=== PATIENT | male | born 1990 | race Caucasian/White ===

== ENCOUNTER 2017-06-02 14:27 | Observation (INO) | payer OTHER ==
[~2017-06-02] VITALS: Ht 165.1 cm; Wt 58.1 kg
[2017-06-02 15:08] LABS: ABSOLUTE BASOPHIL COUNT 0 /CUMM (0.0-0.2); ABSOLUTE EOSINOPHIL COUNT 0.1 /CUMM (0.0-0.7); ABSOLUTE LYMPH COUNT 1.9 /CUMM (1.2-3.4); ABSOLUTE MONOCYTE COUNT 0.6 /CUMM (0.10-0.60); BASOPHIL % 0.3 % (0.0-2.0); EOSINOPHIL % 1.6 % (0-5); GRANULOCYTE % 52.8 % (42.2-75.2); HEMATOCRIT 44.7 % (42-52); MEAN CORPUSCULAR HGB 29.5 PG (27.0-31.0); MEAN CORPUSCULAR HGB CONC 32.7 G/DL (33.0-37.0); MEAN CORPUSCULAR VOLUME 90.2 FL (80.0-94.0); MEAN PLATELET VOLUME 8.5 FL (7.4-10.4); PLATELET COUNT 307 /CUMM (130-400); RBC DISTRIBUTION WIDTH 13.6 % (11.5-14.5); RED BLOOD CELL CT 4.95 /CUMM (4.70-6.10); WHITE BLOOD CELL COUNT 5.6 /CUMM (4.8-10.8)
[2017-06-02 15:16] LABS: PT 11.2 SEC (9.4-12.5); PTT 31 SEC (25-37)
--- NOTE | 2017-06-02 15:17 | ED GI/GU/ABDOMINAL COMPLAINT ---
History of Present Illness General Chief Complaint: General Adult Stated Complaint: BIBA FOR RECTAL BLEED Source: [facility] Exam Limitations: clinical condition Vital Signs & Intake/Output Vital Signs & Intake/Output Vital Signs Date Time Temp Pulse Resp B/P B/P Pulse O2 O2 Flow FiO2 Mean Ox Delivery Rate 06/02 1610 97.1 86 20 103/74 97 Room Air 06/02 1607 86 103/74 06/02 1442 96 Room Air 06/02 1434 98.7 86 20 120/57 96 Room Air Allergies Coded Allergies: No Known Allergies (06/02/17) Triage Note: 26 Y/O MALE TO ED ROOM 17 VIA EMS STRET[facility] WITH C/O LOWER GI BLEED. DIAPER AT DAYCARE HAD STOOL WITH BLOOD AND CLOTS. Triage Nurses Notes Reviewed? 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 Patient's caregiver reports that patient was hospitalized at [facility] 2 weeks ago for a small bowel obstruction. He was discharged after several days without a surgical procedure. The small bowel obstruction resolved on its own. Patient had been constipated for several days after this. He was treated with milk of magnesia yesterday he had a large hard bowel movement without any blood. Today he had a bowel movement that was described by his caregiver as "appeared like a woman's menstrual cycle". There was blood and dark red blood clots. Patient does not take blood thinners. His mental status is at baseline. He's been eating and drinking normally. No abdominal pain nausea or vomiting. He has not had a colonoscopy in the past. There is been no additional bleeding other than the single episode. (Finn Byrd) Reconcile Medications Acetaminophen 325 MG TABLET 2 TAB PO Q4H PRN PAIN/FEVER>100.2 (Reported) Bacitracin 500 UNIT/GRAM OINT...G. 1 MARV TOP BID PRN ABRASIONS/SCRAPES/MINOR VASQUEZ (Reported) apply to affected area(s) Chlorhexidine Gluconate (Periogard) (Unknown Strength) MOUTHWASH (Unknown Dose ) PO BID ORAL HEALTH (Reported) Cholecalciferol (Vitamin D3) (Vitamin D) 1,000 UNIT TABLET 1 TAB PO DAILY SUPPLEMENT (Reported) Guaifenesin/Dextromethorphan (Zyncof 20-400 MG/5 Ml Liquid) 400 MG-20 MG/5 ML LIQUID 5 ML PO Q4H PRN COUGH/CONGESTION (Reported) Ketoconazole (Nizoral) 2 % SHAMPOO 1 MARV TOP Monday SCALP ( Reported) Magnesium Hydroxide (Milk Of Magnesia) 400 MG/5 ML ORAL.SUSP 15 ML PO QPM PRN CONSTIPATION (Reported) Mineral Oil/Hydrophil Petrolat (Aquaphor Ointment) 396 GM OINT...G. 1 MARV TOP AD PRN SKIN (Reported) Omeprazole 20 MG TABLET.DR 1 TAB PO DAILY gi bleed Petrolatum,White (Balmex) 51.1 % OINT...G. 1 MARV TOP AD PRN PERINEAL AREA/RED, CHAFFED SKI (Reported) Polyethylene Glycol 3350 (Miralax) 17 GRAM POWD.PACK 1 PAC PO DAILY GI ( Reported) dissolve in water Pyrithione Zinc (Selsun Blue) (Unknown Strength) SHAMPOO (Unknown Dose) TOP AD PRN DANDRUFF (Reported) (Merlene FELIPE,Colt Krishnamurthy) Past History Travel History Traveled to [place] past 21 day No Medical History Any Pertinent Medical History? 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 No (Finn Byrd) Review of Systems Review of Systems Constitutional: Reports: no symptoms. EENTM: Reports: no symptoms. Respiratory: Reports: no symptoms. Cardiovascular: Reports: no symptoms. GI: Reports: bloody stool. Genitourinary: Reports: no symptoms. Musculoskeletal: Reports: no symptoms. Skin: Reports: no symptoms. Neurological/Psychological: Reports: no symptoms. Hematologic/Endocrine: Reports: no symptoms. Immunologic/Allergic: Reports: no symptoms. All Other Systems: Reviewed and Negative (Finn Byrd) Physical Exam Physical Exam General Appearance: well developed/nourished, no apparent distress, alert, awake , comfortable Head: atraumatic, normal appearance Eyes: Bilateral: normal appearance, PERRL, EOMI. Ears, Nose, Throat, Mouth: hearing grossly normal, moist mucous membrane, Tympanic normal Neck: normal inspection, supple, full range of motion Respiratory: normal breath sounds, chest non-tender, no respiratory distress, lungs clear Cardiovascular: regular rate/rhythm, normal peripheral pulses Peripheral Pulses: 2+ radial (R), 2+ radial (L) Gastrointestinal: normal bowel sounds, soft, non-tender, no organomegaly Rectal: normal inspection, normal rectal tone, heme positive stool Back: normal inspection, normal range of motion Extremities: normal range of motion Neurologic/Psych: no motor/sensory deficits, awake, alert Skin: intact, normal color, warm/dry Core Measures ACS in differential dx? No Sepsis Present: No Sepsis Focused Exam Completed? No (Finn Byrd) Progress Differential Diagnosis: appendicitis, biliary colic, bowel obstruction, diverticulitis, gastritis, hemorrhoids, Jeana-Barbara tear, peptic ulcer, PUD/ GERD, SBO, avm, ISCHEMIC COLITIS Plan of Care: Orders Procedure Date/time Status Patient Data 06/[address] in observation 06/02 1625 Active MISTAKE 06/02 1442 Active PARTIAL THROMBOPLASTIN TIME 06/02 1442 Complete PROTHROMBIN TIME 06/02 1442 Complete COMPREHENSIVE METABOLIC PANEL 06/02 1442 Complete CBC WITHOUT DIFFERENTIAL 06/02 1442 Complete Intake & Output 06/02 1433 Active Laboratory Tests 06/02/17 1500: Anion Gap 14, Estimated GFR > 60, BUN/Creatinine Ratio 16.3, Glucose 88, Calcium 9.8, Total Bilirubin 0.4, AST 25, ALT 69, Alkaline Phosphatase 56, Total Protein 6.8, Albumin 4.3, Globulin 2.5, Albumin/Globulin Ratio 1.7, PT 11.2, INR 1.07, APTT 31, CBC w Diff NO MAN DIFF REQ, RBC 4.95, MCV 90.2, MCH 29.5, MCHC 32.7 L, RDW 13.6, MPV 8.5, Gran % 52.8, Lymphocytes % 34.4, Monocytes % 10.9 H, Eosinophils % 1.6, Basophils % 0.3, Absolute Granulocytes 3.0, Absolute Lymphocytes 1.9, Absolute Monocytes 0.6, Absolute Eosinophils 0.1, Absolute Basophils 0 Patient seen and evaluated. He has what was described as large amount of dark blood and blood clots in his stool. This is concerning for a larger GI bleed. He also had a possible small bowel obstruction 2 weeks ago and had a large hard bowel movement that proceeded the blood. Patient's mental status is at baseline he is hemodynamically stable. Rectal exam was positive for occult blood. He is clinically well appearing. Bloodwork is within normal limits. CT scan does not show any evidence of colitis. Spoke with Dr. Abreu from gastroenterology. She recommends admitting the patient for observation due to the concern for significant GI bleeding. Patient will be kept for serial H&H's, colonoscopy, monitoring of vital signs and GI consult, case discussed with Dr. Blunt he agrees. Diagnostic Imaging: Viewed by Me: CT Scan. Discussed w/RAD: CT Scan. Radiology Impression: PATIENT: JONI GREENBERG PRESENT AGE: 26 PATIENT ACCOUNT NO: [id number] : 90 LOCATION: [facility] ORDERING PHYSICIAN: Finn JACOBSON SERVICE DATE: 06/02/17 EXAM TYPE: CAT - CT ABD & PELVIS W IV CONTRAST EXAMINATION: CT ABDOMEN AND PELVIS WITH CONTRAST CLINICAL INFORMATION: Abdominal pain. COMPARISON: None. TECHNIQUE: Contiguous axial thin section helical images of the abdomen and pelvis were performed following the administration of 95 mL of intravenous Optiray 320. The data set was reformatted in the coronal and sagittal planes and reviewed on an independent workstation. DLP: 348 mGy-cm. FINDINGS: There is mild dependent bibasilar atelectasis. The visualized lung bases are otherwise clear. The visualized portions of the heart are unremarkable. The liver is of normal size and attenuation without focal lesions nor intrahepatic biliary ductal dilation. A normal gallbladder is identified. There is no wall thickening or discernible pericholecystic fluid. The spleen, pancreas, adrenal glands are unremarkable. Both kidneys are of normal size and attenuation without hydronephrosis or nephrolithiasis. Following the administration of IV contrast, prompt symmetric nephrograms are displayed. There is no abdominal free fluid. There is neither mesenteric nor retroperitoneal lymphadenopathy. Normal unopacified loops of small and large bowel are identified. A normal appendix is identified. There is no pelvic free fluid. The urinary bladder is unremarkable. There is neither pelvic nor inguinal lymphadenopathy. Bone windows: Neither sclerotic nor lytic bone lesions are identified. IMPRESSION: No evidence for acute abdominal or pelvic inflammatory or infectious processes. DICTATED BY: Arie Negron MD DATE/TIME DICTATED:06/02 INSPECTOR METAL FABRICATING:REJI DATE/TIME TRANSCRIBED:06/02/171754 CONFIDENTIAL, DO NOT COPY WITHOUT APPROPRIATE AUTHORIZATION. Initial ED EKG: none (Finn Byrd) Departure Departure Disposition: STILL A PATIENT Condition: Stable Clinical Impression Primary Impression: GI bleed Qualifiers: GI bleed type/associated pathology: anorectal hemorrhage Qualified Code: K62.5 - Hemorrhage of anus and rectum Referrals: Davey Hidalgo MD (PCP/Family) Departure Forms: Customer Survey General Discharge Information Observation Note Spoke With: Davey Hidalgo MD Physician Advisor Notified: ROSELYN FELIPE,ANNELISE Vogt Place Patient In: Non-ED OBS Care Area Rationale for Observation: My rational for observation is as follows [patient had a large amount of bleeding from his rectum that is described as "a woman's menstrual cycle" by his caretakers. There were large numbers of clots there. This is concerning for a significant GI bleed. Dr. Abreu from gastroenterology recommends admitting for observation for a GI consult, colonoscopy, serial labs, monitoring of vital signs]. (Finn Byrd) Departure Prescriptions: Current Visit Scripts Omeprazole 1 TAB PO DAILY #30 TAB PA/REACHER Co-Sign Statement Statement: ED Attending supervision documentation- [X] I saw and evaluated the patient. I have also reviewed all the pertinent lab results and diagnostic results. I agree with the findings and the plan of care as documented in the PA's/REACHER's documentation. Patient presents for possibility of a GI bleed. Physical examination reveals a comfortable appearing patient with nondistended nontender abdomen. [] I have reviewed the ED Record and agree with the PA's/REACHER's documentation. [] Additions or exceptions (if any) to the PAs/REACHER's note and plan are summarized below: [] (Merlene FELIPE,Colt Krishnamurthy)
--- NOTE | 2017-06-02 18:03 | CT SCAN REPORT ---
EXAMINATION: CT ABDOMEN AND PELVIS WITH CONTRAST CLINICAL INFORMATION: Abdominal pain. COMPARISON: None. TECHNIQUE: Contiguous axial thin section helical images of the abdomen and pelvis were performed following the administration of 95 mL of intravenous Optiray 320. The data set was reformatted in the coronal and sagittal planes and reviewed on an independent workstation. DLP: 348 mGy-cm. FINDINGS: There is mild dependent bibasilar atelectasis. The visualized lung bases are otherwise clear. The visualized portions of the heart are unremarkable. The liver is of normal size and attenuation without focal lesions nor intrahepatic biliary ductal dilation. A normal gallbladder is identified. There is no wall thickening or discernible pericholecystic fluid. The spleen, pancreas, adrenal glands are unremarkable. Both kidneys are of normal size and attenuation without hydronephrosis or nephrolithiasis. Following the administration of IV contrast, prompt symmetric nephrograms are displayed. There is no abdominal free fluid. There is neither mesenteric nor retroperitoneal lymphadenopathy. Normal unopacified loops of small and large bowel are identified. A normal appendix is identified. There is no pelvic free fluid. The urinary bladder is unremarkable. There is neither pelvic nor inguinal lymphadenopathy. Bone windows: Neither sclerotic nor lytic bone lesions are identified. IMPRESSION: No evidence for acute abdominal or pelvic inflammatory or infectious processes.
[2017-06-02] MEDS ORDERED: NIZORAL120 ML TOP (18:24)
[2017-06-02] MEDS ORDERED: AQUAPHOR OINTM396 GM TOP (18:25)
[2017-06-02] MEDS ORDERED: SELSUN BLUE TOP (18:25)
--- NOTE | 2017-06-02 18:26 | History & Physical ---
Jonh FELIPE,[facility] 06/02/17 1825: General Information and HPI MD Statement: I have seen and personally examined JONI GREENBERG and documented this H&P. The patient is a 26 year old M who presented with a patient stated chief complaint of [GI bleed]. Source of Information: campground caretaker Exam Limitations: not alert/orientated, clinical condition History of Present Illness: 26-year-old male with a past medical history of Angelman syndrome and bowel obstruction and not verbal at baseline who presented with GI bleed. The patient 's functional tester typewriters states that the patient had a large stool this morning. The patient then went to the bathroom again this afternoon. The previous functional tester typewriters stated that there was a lot of blood clots mixed with stool in addition to bright red blood. Prior to having it bowel movement this morning, the patient's last was 2 days prior. The functional tester typewriters states that the patient never had episodes like this before. The functional tester typewriters states that the patient has not had a nausea vomiting. Allergies/Medications Allergies: Coded Allergies: No Known Allergies (06/02/17) Home Med list Acetaminophen 325 MG TABLET 2 TAB PO Q4H PRN PAIN/FEVER>100.2 (Reported) Bacitracin 500 UNIT/GRAM OINT...G. 1 MARV TOP BID PRN ABRASIONS/SCRAPES/MINOR VASQUEZ (Reported) apply to affected area(s) Chlorhexidine Gluconate (Periogard) (Unknown Strength) MOUTHWASH (Unknown Dose ) PO BID ORAL HEALTH (Reported) Cholecalciferol (Vitamin D3) (Vitamin D) 1,000 UNIT TABLET 1 TAB PO DAILY SUPPLEMENT (Reported) Guaifenesin/Dextromethorphan (Zyncof 20-400 MG/5 Ml Liquid) 400 MG-20 MG/5 ML LIQUID 5 ML PO Q4H PRN COUGH/CONGESTION (Reported) Ketoconazole (Nizoral) 2 % SHAMPOO 1 MARV TOP Monday SCALP ( Reported) Magnesium Hydroxide (Milk Of Magnesia) 400 MG/5 ML ORAL.SUSP 15 ML PO QPM PRN CONSTIPATION (Reported) Mineral Oil/Hydrophil Petrolat (Aquaphor Ointment) 396 GM OINT...G. 1 MARV TOP AD PRN SKIN (Reported) Petrolatum,White (Balmex) 51.1 % OINT...G. 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 Cardiovascular: Reports: no symptoms. Respiratory: Reports: no symptoms. GI: Reports: bloody stool. Genitourinary: Reports: no symptoms. Musculoskeletal: Reports: no symptoms. Skin: Reports: no symptoms. Exam & Diagnostic Data Last 24 Hrs of Vital Signs/I&O Vital Signs Date Time Temp Pulse Resp B/P B/P Pulse O2 O2 Flow FiO2 Mean Ox Delivery Rate 06/02 2300 58 18 112/64 100 Room Air 06/02 1904 97.6 75 18 103/75 06/02 1610 97.1 86 20 103/74 97 Room Air 06/02 1607 86 103/74 06/02 1442 96 Room Air 06/02 1434 98.7 86 20 120/57 96 Room Air Intake & Output 06/03 0800 06/03 0000 06/02 1600 Intake Total 120 0 Output Total Balance 120 0 Intake, Oral 120 0 Patient 128 lb Weight Weight Measurement Method Physical Exam General Appearance the patient's eyes are closed, and the patient does not communicate with staff Skin finger capillary refill less than 2 seconds Cardiovascular Regular Rate, Normal S1, Normal S2 Lungs Clear to Auscultation, Normal Air Movement Abdomen Normal Bowel Sounds, Soft, No Tenderness Vascular 2+ radial pulses Last 24 Hrs of Labs/Chandra: Laboratory Tests 06/02/17 1500: Anion Gap 14, Estimated GFR > 60, BUN/Creatinine Ratio 16.3, Glucose 88, Calcium 9.8, Total Bilirubin 0.4, AST 25, ALT 69, Alkaline Phosphatase 56, Total Protein 6.8, Albumin 4.3, Globulin 2.5, Albumin/Globulin Ratio 1.7, PT 11.2, INR 1.07, APTT 31, CBC w Diff NO MAN DIFF REQ, RBC 4.95, MCV 90.2, MCH 29.5, MCHC 32.7 L, RDW 13.6, MPV 8.5, Gran % 52.8, Lymphocytes % 34.4, Monocytes % 10.9 H, Eosinophils % 1.6, Basophils % 0.3, Absolute Granulocytes 3.0, Absolute Lymphocytes 1.9, Absolute Monocytes 0.6, Absolute Eosinophils 0.1, Absolute Basophils 0 Assessment/Plan Assessment: A: 26-year-old male with a past medical history of Angelman syndrome and bowel obstruction and not verbal at baseline who presented with GI bleed. P: #GI bleed H/H 14.6/44.7 INR 1.07, PTT 31, PT 11.2 -Monitor vitals closely every shift, Type and screen, 2 large IV bore needles gentle hydration -monitoring of hemoglobin and hematocrit -IV Protonix -reccheck orthostats -Guaiac stools -Patient was seen by Dr. Brown who recommended that the patient have follow- up for outpatient colonoscopy #Chronic constipation -Vitamin D, MiraLAX, milk of magnesia #Angelman syndrome -Continuous observation monitor #full code DVT prophylaxis subcutaneous Lovenox As Ranked By This Provider Problem List: 1. GI bleed Qualifiers GI bleed type/associated pathology: anorectal hemorrhage Qualified Code: K62.5 - Hemorrhage of anus and rectum Core Measures/Misc (01/22) Acute Coronary Syndrome ACS Diagnosis: No Congestive Heart Failure Congestive Heart Failure Diagnosis No Cerebrovascular Accident CVA/TIA Diagnosis: No VTE (View Protocol) VTE Risk Factors Acute Medical Illness No Mechanical VTE Prophylaxis d/t Other No VTE Pharm Prophylaxis d/t NA PharmProphylax ordered Sepsis (View protocol) Sepsis Present: No Jaime Kamara 06/03/17 0045: Past History Surgical History Surgical History: unobtainable Resident Review Statement Resident Statement: examined this patient, discussed with jewelry internship, agreed with jewelry internship, discussed with family, reviewed EMR data (avail), discussed with nursing , discussed with case mgmt, reviewed images, amended to note Other Findings: This is a 26-year-old male with past medical history significant for mental retardation, Angelman syndrome, bowel obstruction, constipation presented to the [facility] from his long-term for evaluation of bright red blood per rectum. She was admitted to [facility] 2 weeks ago for nausea, vomiting, found to have small bowel obstruction, hospitalized for 5 days, managed conservatively. The patient was brought to the ED from the long-term where he resides. They report that he had a diaper full of darkish red blood with clots. Per their report he had a large hard stool prior to this. He had not complained of any nausea vomiting or abdominal pain. Patient is nonverbal. Review of systems unobtainable. ----- Vitals at the time of presentation afebrile, heart rate 80, respiratory rate 20, blood pressure 120/57, saturating at 96 on room air. Physical exam [id number] normal, breath sounds good, abdomen nondistended soft, nontender. Labs at the time of admission hemoglobin 14, hematocrit 44, CBC, BMP completely normal. LFTs normal. CAT scan of abdomen and pelvis was done which was unremarkable Assessment and plan 1. Hematochezia 2. Chronic constipation 3: Mental retardation, nonverbal at baseline 1. Hematochezia Patient presented with an episode of bright red blood per rectum with clots. He has been constipated for last few days. Bright red blood was seen after having large bowel movements. He is hemodynamically stable blood pressure within normal limits. Not tachycardic. Hemoglobin 14 and hematocrit 44.7. Lower GI bleed hematochezia most likely from acute severe constipation/sterc oral ulceration. Patient denies any further episodes of hematochezia in the emergency room. * Place under observation status in the general medicine floor * Monitor vitals closely every shift * Type and screen * 2 large IV bore needles gentle hydration * Serial monitoring of hemoglobin and hematocrit * Closely monitor for any signs of GI bleed * IV Protonix * Management of constipation with bowel regimen * Appreciate Gastro recommendation * We'll check orthostats * Guaiac stools * Patient will need outpatient colonoscopy. Chronic constipation Bowel regimen was added Mental retardation Continuous observation monitor Patient is full code DVT prophylaxis subcutaneous Lovenox Regular diet
[2017-06-02] MEDS ORDERED: BALMEX100 GM TOP (18:27)
[2017-06-02] MEDS ORDERED: MILK OF MA400 MG/52 PO (18:28)
[2017-06-02] MEDS ORDERED: ACETAMINOPHEN325 M2 PO (18:29)
[2017-06-02] MEDS ORDERED: ZYNCOF 20-400120 ML PO (18:31)
[2017-06-02] MEDS ORDERED: BACITRACIN28.4 GM TOP (18:32)
[2017-06-02] MEDS ORDERED: PERIOGARD473 ML PO (18:33)
[2017-06-02] MEDS ORDERED: VITAMIN D1000 UNIT PO (18:35)
[2017-06-02] MEDS ORDERED: MIRALAX17 G1 PO (18:35)
--- NOTE | 2017-06-02 18:35 | PN- Att Addend ---
Attending Addendum Attending Brief Note 26 Year old male [facility], recently in the hospital for "intestinal obstruction" treatedmedically resolved. A little constipated , had a hard bowel movement followed by blood clots, brought to the ER in stable condition stable H /H. GI was consulted, would like to watch him follow blood work. Laboratory Tests 06/02/17 1500: Anion Gap 14, Estimated GFR > 60, BUN/Creatinine Ratio 16.3, Glucose 88, Calcium 9.8, Total Bilirubin 0.4, AST 25, ALT 69, Alkaline Phosphatase 56, Total Protein 6.8, Albumin 4.3, Globulin 2.5, Albumin/Globulin Ratio 1.7, PT 11.2, INR 1.07, APTT 31, CBC w Diff NO MAN DIFF REQ, RBC 4.95, MCV 90.2, MCH 29.5, MCHC 32.7 L, RDW 13.6, MPV 8.5, Gran % 52.8, Lymphocytes % 34.4, Monocytes % 10.9 H, Eosinophils % 1.6, Basophils % 0.3, Absolute Granulocytes 3.0, Absolute Lymphocytes 1.9, Absolute Monocytes 0.6, Absolute Eosinophils 0.1, Absolute Basophils 0 Vital Signs Date Time Temp Pulse Resp B/P B/P Pulse O2 O2 Flow FiO2 Mean Ox Delivery Rate 06/02 1610 97.1 86 20 103/74 97 Room Air 06/02 1607 86 103/74 06/02 1442 96 Room Air 06/02 1434 98.7 86 20 120/57 96 Room Air
--- NOTE | 2017-06-02 18:37 | Cons- Gastroenterology ---
General Information and HPI Consulting Request Date of Consult: 06/02/17 Requested By: MD Hidalgo Carlos Reason for Consult: 1. Hematochezia 2. Constipation Source of Information: Report from [facility] Exam Limitations: unable to give history History of Present Illness: Patient is a 26-year-old male with a history of Sheldon Montejo syndrome who was seen in [facility] proximally 2 weeks ago with a small bowel obstruction which was treated conservatively. The [facility] They report that he had a diaper full of darkish red blood with clots. Per their report he had had a large hard stool prior to this. He had not complained of any nausea vomiting or abdominal pain. Patient is nonverbal. History is obtained from KAVON Gonzalez in the ED as well as from a public service representative of the [facility]. Patient had a CT scan of the abdomen and pelvis which was unrevealing. Allergies/Medications Allergies: Coded Allergies: No Known Allergies (06/02/17) Home Med List: Acetaminophen 325 MG TABLET 2 TAB PO Q4H PRN PAIN/FEVER>100.2 (Reported) Bacitracin 500 UNIT/GRAM OINT...G. 1 MARV TOP BID PRN ABRASIONS/SCRAPES/MINOR VASQUEZ (Reported) apply to affected area(s) Chlorhexidine Gluconate (Periogard) (Unknown Strength) MOUTHWASH (Unknown Dose ) PO BID ORAL HEALTH (Reported) Cholecalciferol (Vitamin D3) (Vitamin D) 1,000 UNIT TABLET 1 TAB PO DAILY SUPPLEMENT (Reported) Guaifenesin/Dextromethorphan (Zyncof 20-400 MG/5 Ml Liquid) 400 MG-20 MG/5 ML LIQUID 5 ML PO Q4H PRN COUGH/CONGESTION (Reported) Ketoconazole (Nizoral) 2 % SHAMPOO 1 MARV TOP Monday SCALP ( Reported) Magnesium Hydroxide (Milk Of Magnesia) 400 MG/5 ML ORAL.SUSP 15 ML PO QPM PRN CONSTIPATION (Reported) Mineral Oil/Hydrophil Petrolat (Aquaphor Ointment) 396 GM OINT...G. 1 MARV TOP AD PRN SKIN (Reported) Petrolatum,White (Balmex) 51.1 % OINT...G. 1 MARV TOP AD PRN PERINEAL AREA/RED, CHAFFED SKI (Reported) Polyethylene Glycol 3350 (Miralax) 17 GRAM POWD.PACK 1 PAC PO DAILY GI ( Reported) dissolve in water Pyrithione Zinc (Selsun Blue) (Unknown Strength) SHAMPOO (Unknown Dose) TOP AD PRN DANDRUFF (Reported) Current Medications: Current Medications Sig/Anna Start time Last Medication Dose Route Stop Time Status Admin Diphenhydramine HCl 50 MG ONCE ONE 06/02 1699 DC 06/02 IV 06/02 Diphenhydramine HCl 0 .STK-MED ONE 06/02 1699 DC .ROUTE Lorazepam 1 MG ONCE ONE 06/02 1699 DC 06/02 IV 06/02 Lorazepam 0 .STK-MED ONE 06/02 1699 DC .ROUTE Past History Travel History Traveled to [place] past 21 day No Medical History 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 Gastrointestinal: S/P BOWEL OBSTRUCTION Musculoskeletal: BILATER LEG BRACES Surgical History Surgical History: none Psychosocial History ETOH Use: denies use Illicit Drug Use: denies illicit drug use Review of Systems Review of Systems: Unable to obtain review of systems Exam & Diagnostic Data Vital Signs and I&O Vital Signs Date Time Temp Pulse Resp B/P B/P Pulse O2 O2 Flow FiO2 Mean Ox Delivery Rate 06/02 1610 97.1 86 20 103/74 97 Room Air 06/02 1607 86 103/74 06/02 1442 96 Room Air 06/02 1434 98.7 86 20 120/57 96 Room Air Intake & Output 06/02 1600 06/02 0400 06/01 1600 06/01 0400 05/31 1600 05/31 0400 Intake Total 0 Output Total Balance 0 Intake, Oral 0 Physical Exam General Appearance: no apparent distress, alert, awake Head: normal appearance Eyes: Bilateral: normal appearance. Respiratory: chest non-tender, lungs clear Cardiovascular: regular rate/rhythm, Normal S1 and S2 Gastrointestinal: soft, non-tender, no organomegaly Neurologic/Psych: Unable to fully examine. Patient does not follow commands. Moves all extremities Skin: intact, normal color, warm/dry Results Pertinent Lab Results: Laboratory Tests 06/02 1500 Chemistry Sodium (137 - 145 mmol/L) 141 Potassium (3.5 - 5.1 mmol/L) 4.1 Chloride (98 - 107 mmol/L) 97 L Carbon Dioxide (22 - 30 mmol/L) 30 Anion Gap (5 - 16) 14 BUN (9 - 20 mg/dL) 13 Creatinine (0.7 - 1.2 mg/dL) 0.8 Estimated GFR (>60 ml/min) > 60 BUN/Creatinine Ratio (7 - 25 %) 16.3 Glucose (65 - 99 mg/dL) 88 Calcium (8.4 - 10.2 mg/dL) 9.8 Total Bilirubin (0.2 - 1.3 mg/dL) 0.4 AST (17 - 59 U/L) 25 ALT (21 - 72 U/L) 69 Alkaline Phosphatase (< 127 U/L) 56 Total Protein (6.3 - 8.2 g/dL) 6.8 Albumin (3.5 - 5.0 g/dL) 4.3 Globulin (1.9 - 4.2 gm/dL) 2.5 Albumin/Globulin Ratio (1.1 - 2.2 %) 1.7 Coagulation PT (9.4 - 12.5 SEC) 11.2 INR (0.90 - 1.17) 1.07 APTT (25 - 37 SEC) 31 Hematology CBC w Diff NO MAN DIFF REQ WBC (4.8 - 10.8 /CUMM) 5.6 RBC (4.70 - 6.10 /CUMM) 4.95 Hgb (14.0 - 18.0 G/DL) 14.6 Hct (42 - 52 %) 44.7 MCV (80.0 - 94.0 FL) 90.2 MCH (27.0 - 31.0 PG) 29.5 MCHC (33.0 - 37.0 G/DL) 32.7 L RDW (11.5 - 14.5 %) 13.6 Plt Count (130 - 400 /CUMM) 307 MPV (7.4 - 10.4 FL) 8.5 Gran % (42.2 - 75.2 %) 52.8 Lymphocytes % (20.5 - 51.1 %) 34.4 Monocytes % (1.7 - 9.3 %) 10.9 H Eosinophils % (0 - 5 %) 1.6 Basophils % (0.0 - 2.0 %) 0.3 Absolute Granulocytes (1.4 - 6.5 /CUMM) 3.0 Absolute Lymphocytes (1.2 - 3.4 /CUMM) 1.9 Absolute Monocytes (0.10 - 0.60 /CUMM) 0.6 Absolute Eosinophils (0.0 - 0.7 /CUMM) 0.1 Absolute Basophils (0.0 - 0.2 /CUMM) 0 Imaging/Other Studies: FINDINGS: There is mild dependent bibasilar atelectasis. The visualized lung bases are otherwise clear. The visualized portions of the heart are unremarkable. The liver is of normal size and attenuation without focal lesions nor intrahepatic biliary ductal dilation. A normal gallbladder is identified. There is no wall thickening or discernible pericholecystic fluid. The spleen, pancreas, adrenal glands are unremarkable. Both kidneys are of normal size and attenuation without hydronephrosis or nephrolithiasis. Following the administration of IV contrast, prompt symmetric nephrograms are displayed. There is no abdominal free fluid. There is neither mesenteric nor retroperitoneal lymphadenopathy. Normal unopacified loops of small and large bowel are identified. A normal appendix is identified. There is no pelvic free fluid. The urinary bladder is unremarkable. There is neither pelvic nor inguinal lymphadenopathy. Bone windows: Neither sclerotic nor lytic bone lesions are identified. IMPRESSION: No evidence for acute abdominal or pelvic inflammatory or infectious processes. Assessment/Plan Assessment/Recommendations: ASSESSMENT: 1. Chronic Constipation 2. Hematochezia Patient's hematochezia is likely related to either acute nonobstructive colonic ischemia in the setting of acute severe constipation or possibly stercoral ulceration. Patient is currently comfortable and not complaining of any abdominal pain. Patient has not had any further hematochezia in the ED. Per the public service representative from the [facility] patient has been started on MiraLAX to address the issue of chronic constipation RECOMMENDATIONS: 1. Patient admitted for observation 2. Check H&H in a.m. 3. Observe for clinical signs of gastrointestinal bleeding 4. Patient have colonoscopy as an outpatient. 5. Patient to follow-up with Dr. Brown for outpatient colonoscopy. This can be scheduled as an open access colonoscopy Consult Acknowledgment - Thank you for your consult request.
[2017-06-02 23:00] VITALS: BP 112/64
[2017-06-03 07:01] VITALS: BP 134/70
--- NOTE | 2017-06-03 07:58 | PN- Housestaff ---
Jonh FELIPE,[facility] 06/03/17 0758: Subjective Follow-up For: BI bleed Subjective: No acute events overnight. Patient hunched over in bed. Of note, patient is non verbal Review of Systems Constitutional: Reports: no symptoms. Comments: Patient is non verbal Objective Last 24 Hrs of Vital Signs/I&O Vital Signs Date Time Temp Pulse Resp B/P B/P Pulse O2 O2 Flow FiO2 Mean Ox Delivery Rate 06/03 2132 98.3 64 18 100/60 100 Room Air 06/03 1440 98.0 70 18 120/70 98 Room Air 06/03 0701 97.4 98 18 134/70 98 Room Air Intake & Output 06/03 1600 06/03 0800 06/03 0000 Intake Total 620 600 120 Output Total Balance 620 600 120 Intake, IV 600 Intake, Oral 620 120 Number 0 Bowel Movements Patient 128 lb Weight Weight Measurement Method Physical Exam General Appearance: Alert, Cooperative, No Acute Distress Cardiovascular: Regular Rate, Normal S1, Normal S2 Lungs: Clear to Auscultation, Normal Air Movement, unable to fully appreciate full breath sounds. patient is non-cooperative with exam. Abdomen: Normal Bowel Sounds, Soft, No Tenderness Vascular: 2+ radial pulses Other Physical Findings: Physical exam is limited as patient is non verbal. Pt currently sitting bent over in bed. Assessment/Plan Assessment: A: 26-year-old male with a past medical history of Angelman syndrome and bowel obstruction and not verbal at baseline who presented with GI bleed. P: #GI bleed H/H 14.6/44.7 -> 14.4/43.2 INR 1.07, PTT 31, PT 11.2 -GI ok with discharging patient and outpatient follow up -monitor h/h -IV Protonix -Guaiac stools #Chronic constipation -Vitamin D, MiraLAX, milk of magnesia #Angelman syndrome -Continuous observation monitor #full code DVT prophylaxis subcutaneous Lovenox Problem List: 1. GI bleed Pain Ratin Pain Location: pt nonverbal but did not appear uncomfortable during exam today Pain Goal: Remain pain free Pain Plan: pain pathway Tomorrow's Labs & Rationales: [facility] campbell Shaikh MD,Brian 06/03/17 0318: Attending MD Review Statement Attending Statement Attending MD Statement: examined this patient, reviewed EMR data (avail), amended to note Attending Assessment/Plan: Mr. Vargas was examined. He was not interviewed as he is nonverbal. His EMR was reviewed. He has stable vital signs. His physical exam is benign. His CBC has remained stable We'll continue to follow his CBC and his clinical status. We are continuing his MiraLAX for constipation. GI input is appreciated and he will be scheduled for an outpatient procedure when she is discharged.
[2017-06-03 09:08] LABS: ABSOLUTE BASOPHIL COUNT 0 /CUMM (0.0-0.2); ABSOLUTE EOSINOPHIL COUNT 0.1 /CUMM (0.0-0.7); ABSOLUTE LYMPH COUNT 1.7 /CUMM (1.2-3.4); ABSOLUTE MONOCYTE COUNT 0.5 /CUMM (0.10-0.60); BASOPHIL % 0.6 % (0.0-2.0); EOSINOPHIL % 1.6 % (0-5); GRANULOCYTE % 56.8 % (42.2-75.2); HEMATOCRIT 43.2 % (42-52); MEAN CORPUSCULAR HGB 30.1 PG (27.0-31.0); MEAN CORPUSCULAR HGB CONC 33.2 G/DL (33.0-37.0); MEAN CORPUSCULAR VOLUME 90.5 FL (80.0-94.0); MEAN PLATELET VOLUME 9.2 FL (7.4-10.4); PLATELET COUNT 264 /CUMM (130-400); RBC DISTRIBUTION WIDTH 13.9 % (11.5-14.5); RED BLOOD CELL CT 4.77 /CUMM (4.70-6.10); WHITE BLOOD CELL COUNT 5.4 /CUMM (4.8-10.8)
[2017-06-03 14:40] VITALS: BP 120/70
--- NOTE | 2017-06-03 17:00 | PN- Gastroenterology ---
Assessment/Plan Assessment/Recommendations: ASSESSMENT: 1. Chronic Constipation 2. Hematochezia Patient's hematochezia is likely related to either acute nonobstructive colonic ischemia in the setting of acute severe constipation or possibly stercoral ulceration. Patient is currently comfortable and not complaining of any abdominal pain. Patient has not had any further hematochezia in the ED. Per the benefits representative from the custod[facility] patient has been started on MiraLAX to address the issue of chronic constipation RECOMMENDATIONS: 1. Patient tolerating diet 2. Stable for discharge today. 3. Per housestaff, has communicated with family and with custodial, patient will need followup with Raghu Brown for outpatient colonoscopy. 4. GI will sign off for now. Subjective Subjective: Patient non-verbal. Up in bed, playing with toys. Appears comfortable. Per nursing no further bleeding. Objective Vital Signs and I&Os Vital Signs Date Time Temp Pulse Resp B/P B/P Pulse O2 O2 Flow FiO2 Mean Ox Delivery Rate 06/03 1440 98.0 70 18 120/70 98 Room Air 06/03 0701 97.4 98 18 134/70 98 Room Air 06/02 2300 58 18 112/64 100 Room Air 06/02 1904 97.6 75 18 103/75 Intake & Output 06/03 1600 06/03 0400 06/02 1600 06/02 0400 06/01 1600 06/01 0400 Intake Total 1220 120 0 Output Total Balance 1220 120 0 Intake, IV 600 Intake, Oral 620 120 0 Number 0 Bowel Movements Patient 128 lb Weight Weight Measurement Method Physical Exam General Appearance: alert, awake, comfortable Respiratory: lungs clear Cardiovascular: regular rate/rhythm Abdomen: normal bowel sounds, soft, non-tender, no organomegaly Neurologic/Psychiatric: Non-verbal, Angelman's Syndrome Current Medications: Current Medications Sig/Anna Start time Last Medication Dose Route Stop Time Status Admin Acetaminophen 650 MG Q6P PRN 06/02 2000 AC PO Cholecalciferol 1,000 IU DAILY 06/03 1000 AC PO Diphenhydramine HCl 50 MG ONCE ONE 06/02 1700 DC 06/02 IV 06/02 1701 1709 Diphenhydramine HCl 0 .STK-MED ONE 06/02 1700 DC .ROUTE Enoxaparin Sodium 40 MG DAILY 06/03 1000 AC 06/03 SC 1118 Guaifenesin/Codeine 10 ML Q6P PRN 06/02 1999 AC Phosphate PO Lorazepam 1 MG ONCE ONE 06/02 170 DC 06/02 IV 06/02 1701 1709 Lorazepam 0 .STK-MED ONE 06/02 1699 DC .ROUTE Magnesium Hydroxide 15 ML QPM PRN 06/02 1999 AC PO Pantoprazole Sodium 40 MG DAILY 06/02 1956 AC 06/03 IV 1118 Polyethylene Glycol 17 GM DAILY PRN 06/02 1999 AC PO Sodium Chloride 1,000 ML ONCE ONE 06/02 1999 DC 06/02 IV 06/03 0919 2131 Results Pertinent Lab Results: Laboratory Tests 06/03 06/02 0745 1500 Chemistry Sodium (137 - 145 mmol/L) 141 141 Potassium (3.5 - 5.1 mmol/L) 4.4 4.1 Chloride (98 - 107 mmol/L) 102 97 L Carbon Dioxide (22 - 30 mmol/L) 24 30 Anion Gap (5 - 16) 16 14 BUN (9 - 20 mg/dL) 11 13 Creatinine (0.7 - 1.2 mg/dL) 0.8 0.8 Estimated GFR (>60 ml/min) > 60 > 60 BUN/Creatinine Ratio (7 - 25 %) 13.8 16.3 Glucose (65 - 99 mg/dL) 88 Calcium (8.4 - 10.2 mg/dL) 9.8 Total Bilirubin (0.2 - 1.3 mg/dL) 0.4 AST (17 - 59 U/L) 25 ALT (21 - 72 U/L) 69 Alkaline Phosphatase (< 127 U/L) 56 Total Protein (6.3 - 8.2 g/dL) 6.8 Albumin (3.5 - 5.0 g/dL) 4.3 Globulin (1.9 - 4.2 gm/dL) 2.5 Albumin/Globulin Ratio (1.1 - 2.2 %) 1.7 Coagulation PT (9.4 - 12.5 SEC) 11.2 INR (0.90 - 1.17) 1.07 APTT (25 - 37 SEC) 31 Hematology CBC w Diff NO MAN DIFF REQ NO MAN DIFF REQ WBC (4.8 - 10.8 /CUMM) 5.4 5.6 RBC (4.70 - 6.10 /CUMM) 4.77 4.95 Hgb (14.0 - 18.0 G/DL) 14.4 14.6 Hct (42 - 52 %) 43.2 44.7 MCV (80.0 - 94.0 FL) 90.5 90.2 MCH (27.0 - 31.0 PG) 30.1 29.5 MCHC (33.0 - 37.0 G/DL) 33.2 32.7 L RDW (11.5 - 14.5 %) 13.9 13.6 Plt Count (130 - 400 /CUMM) 264 307 MPV (7.4 - 10.4 FL) 9.2 8.5 Gran % (42.2 - 75.2 %) 56.8 52.8 Lymphocytes % (20.5 - 51.1 %) 31.4 34.4 Monocytes % (1.7 - 9.3 %) 9.6 H 10.9 H Eosinophils % (0 - 5 %) 1.6 1.6 Basophils % (0.0 - 2.0 %) 0.6 0.3 Absolute Granulocytes (1.4 - 6.5 /CUMM) 3.0 3.0 Absolute Lymphocytes (1.2 - 3.4 /CUMM) 1.7 1.9 Absolute Monocytes (0.10 - 0.60 /CUMM) 0.5 0.6 Absolute Eosinophils (0.0 - 0.7 /CUMM) 0.1 0.1 Absolute Basophils (0.0 - 0.2 /CUMM) 0 0
--- NOTE | 2017-06-03 17:09 | Patient Discharge Instructions ---
Discharge Instructions General Discharge Information You were seen/treated for: Bleeding per rectum Constipation Watch for these problems: Bleeding per rectum, constiaption, abdominal pain and fever. If you experinence any of these sumptoms come to ED or call to your pcp. Special Instructions: Follow up with pcp in one week. Follow up with Dr. Brown in one week and discuss for colonoscopy in future. Diet Recommended Diet: Regular Activity Activity Self Limited: Yes Acute Coronary Syndrome Inclusion Criteria At DC or during hospital stay patient has or had the following: ACS DIAGNOSIS No Discharge Core Measures Meds if any: Prescribed or Continued at Discharge Meds if any: NOT Prescribed or Continued at Discharge Congestive Heart Failure Inclusion Criteria At DC or during hospital stay patient has or had the following: CHF DIAGNOSIS No Discharge Core Measures Meds if any: Prescribed or Continued at Discharge Meds if any: NOT Prescribed or Continued at Discharge Cerebrovascular accident Inclusion Criteria At DC or during hospital stay patient has or had the following: CVA/TIA Diagnosis No Discharge Core Measures Meds if any: Prescribed or Continued at Discharge Meds if any: NOT Prescribed or Continued at Discharge Venous thromboembolism Inclusion Criteria VTE Diagnosis No VTE Type NONE VTE Confirmed by (Test) NONE Discharge Core Measures - Per Current guidelines, there needs to be overlap - treatment for the first 5 days of Warfarin therapy. - If discharged on Warfarin prior to 5 days of - overlap therapy, the patient will need to be - assessed for post discharge needs including - *Post discharge parental anticoagulation - *Warfarin and/or parental anticoagulation education - *Follow up date to check INR post discharge At least 5 days overlap therapy as Inpatient No Meds if any: Prescribed or Continued at Discharge Note: Overlap Therapy is Warfarin and Anticoagulant Meds if any: NOT Prescribed or Continued at Discharge
[2017-06-03 21:32] VITALS: BP 100/60
[2017-06-04 08:38] LABS: ABSOLUTE BASOPHIL COUNT 0 /CUMM (0.0-0.2); ABSOLUTE MONOCYTE COUNT 0.9 /CUMM (0.10-0.60); MEAN CORPUSCULAR HGB 30.2 PG (27.0-31.0); RBC DISTRIBUTION WIDTH 13.9 % (11.5-14.5); RED BLOOD CELL CT 5.33 /CUMM (4.70-6.10)
[2017-06-04 08:46] LABS: ABSOLUTE EOSINOPHIL COUNT 0 /CUMM (0.0-0.7); ABSOLUTE GRANULOCYTE CT 7.1 /CUMM (1.4-6.5); ABSOLUTE LYMPH COUNT 1.6 /CUMM (1.2-3.4); BASOPHIL % 0.4 % (0.0-2.0); EOSINOPHIL % 0.4 % (0-5); GRANULOCYTE % 73.3 % (42.2-75.2); HEMATOCRIT 47.8 % (42-52); MEAN CORPUSCULAR HGB CONC 33.7 G/DL (33.0-37.0); MEAN CORPUSCULAR VOLUME 89.6 FL (80.0-94.0); MEAN PLATELET VOLUME 9.7 FL (7.4-10.4); PLATELET COUNT 304 /CUMM (130-400)
--- NOTE | 2017-06-04 08:47 | PN- Housestaff ---
Subjective Follow-up For: lower gi bleed Subjective: he was seen and examined No acute events No more bloody bowel movements. No abdomen pain, nausea, vomiting, hematemesis, melena, hematochezia Hemoglobin remained stable Vitals stable Review of Systems Constitutional: Reports: see HPI. Objective Last 24 Hrs of Vital Signs/I&O Vital Signs Date Time Temp Pulse Resp B/P B/P Pulse O2 O2 Flow FiO2 Mean Ox Delivery Rate 06/04 0619 97.3 78 20 96 06/03 2132 98.3 64 18 100/60 100 Room Air 06/03 1440 98.0 70 18 120/70 98 Room Air Intake & Output 06/04 1600 06/04 0800 06/04 0000 Intake Total 250 350 Output Total Balance 250 350 Intake, Oral 250 350 Physical Exam General Appearance: Alert, Oriented X3, Cooperative, No Acute Distress Other Physical Findings: Cardiovascular Regular Rate, Normal S1, Normal S2 Lungs Clear to Auscultation, Normal Air Movement Abdomen Normal Bowel Sounds, Soft, No Tenderness Vascular 2+ radial pulses Current Medications: Current Medications Sig/Anna Start time Last Medication Dose Route Stop Time Status Admin Acetaminophen 650 MG Q6P PRN 06/02 1999 AC PO Cholecalciferol 1,000 IU DAILY 06/03 1000 AC 06/04 PO 0902 Enoxaparin Sodium 40 MG DAILY 06/03 1000 AC 06/03 SC 1118 Guaifenesin/Codeine 10 ML Q6P PRN 06/02 1999 AC Phosphate PO Magnesium Hydroxide 15 ML QPM PRN 06/02 1999 AC PO Pantoprazole Sodium 40 MG DAILY 06/02 195 AC 06/04 IV 0902 Polyethylene Glycol 17 GM DAILY PRN 06/02 1999 AC PO Assessment/Plan Assessment: This is a 26-year-old male with past medical history significant for mental retardation, Angelman syndrome, bowel obstruction, constipation presented to the [facility] from his retirement for evaluation of bright red blood per rectum. he was admitted to [facility] 2 weeks ago for nausea, vomiting, found to have small bowel obstruction, hospitalized for 5 days, managed conservatively. ----- Vitals at the time of presentation afebrile, heart rate 80, respiratory rate 20, blood pressure 120/57, saturating at 96 on room air. Physical exam [id number] normal, breath sounds good, abdomen nondistended soft, nontender. Labs at the time of admission hemoglobin 14, hematocrit 44, CBC, BMP completely normal. LFTs normal. CAT scan of abdomen and pelvis was done which was unremarkable Assessment and plan 1. Hematochezia 2. Chronic constipation 3: Mental retardation, nonverbal at baseline 1. Hematochezia Patient presented with an episode of bright red blood per rectum with clots. He has been constipated for last few days. Bright red blood was seen after having large bowel movements. He is hemodynamically stable blood pressure within normal limits. Not tachycardic. Hemoglobin 14 and hematocrit 44.7. Lower GI bleed hematochezia most likely from acute severe constipation/sterc oral ulceration. Patient denies any further episodes of hematochezia in the emergency room. * Placed under observation status in the general medicine floor * Monitor vitals closely every shift * Type and screen done * 2 large IV bore needles * gentle hydration * Serial monitoring of hemoglobin and hematocrit- stable * Closely monitored for any signs of GI bleed * IV Protonix * Management of constipation with bowel regimen * Appreciate Gastro recommendation * orthostats- neg * Guaiac stools * Patient will need outpatient colonoscopy. Chronic constipation Bowel regimen was added Mental retardation Continuous observation monitor Patient is full code DVT prophylaxis subcutaneous Lovenox Regular diet Problem List: 1. GI bleed Pain Ratin Pain Location: n/a Pain Goal: Remain pain free Pain Plan: tylinol Tomorrow's Labs & Rationales: n/a
[2017-06-04 08:50] LABS: WHITE BLOOD CELL COUNT 9.7 /CUMM (4.8-10.8)
--- NOTE | 2017-06-04 09:59 | Discharge Summary ---
Visit Information Visit Dates Admission Date: 06/02/17 Discharge Date: 06/04/2016 Hospital Course Course Attending Physician: Davey Hidalgo MD Primary Care Physician: Davey Hidalgo MD Other Care Providers: Dr. [email or web address] Consulting Request: Consulting Specialty: Gastroenterology Hospital Course: This is a 26-year-old male with past medical history significant for mental retardation, Angelman syndrome, bowel obstruction, constipation presented to [facility] his [facility] for evaluation of bright red blood per rectum. She was admitted to [facility] 2 weeks ago for nausea, vomiting, found to have small bowel obstruction, hospitalized for 5 days, managed conservatively. The patient was [facility] They reported that he had a diaper full of darkish red blood with clots. Per their report he had a large hard stool prior to this. He had not complained of any nausea vomiting or abdominal pain. Patient is nonverbal. Review of systems unobtainable. ----- Vitals at the time of presentation afebrile, heart rate 80, respiratory rate 20, blood pressure 120/57, saturating at 96 on room air. Physical exam [id number] normal, breath sounds good, abdomen nondistended soft, nontender. Labs at the time of admission hemoglobin 14, hematocrit 44, CBC, BMP completely normal. LFTs normal. CAT scan of abdomen and pelvis was done which was unremarkable Assessment and plan 1. Hematochezia 2. Chronic constipation 3: Mental retardation, nonverbal at baseline 1. Hematochezia Patient presented with an episode of bright red blood per rectum with clots. He has been constipated for last few days. Bright red blood was seen after having large bowel movements. He was hemodynamically stable and blood pressure was within normal limits. Not tachycardic. Hemoglobin 14 and hematocrit 44.7. Lower GI bleed hematochezia most likely from acute severe constipation/sterc oral ulceration. Patient denied any further episodes of hematochezia in the emergency room. He was placed in observation status in the general medicine floor. Vitals were monitored closely. Type and screen was done. 2 large IV bore needles were placed. He was given gentle hydration. Serial monitoring of hemoglobin was done. Hemoglobin and hematocrit remained stable. He remained hemodynamically stable with no more bloody bowel movements. He was seen by bench manager Dr. Abreu. He was recommended to follow up with bench manager as an outpatient and get outpatient colonoscopy. He was given IV Protonix. Chronic constipation Bowel regimen was added Mental retardation Continuous observation monitor Patient is full code DVT prophylaxis subcutaneous Lovenox Regular diet Allergies: Coded Allergies: No Known Allergies (06/02/17) Pertinent Lab Results: TECHNIQUE: Contiguous axial thin section helical images of the abdomen and pelvis were performed following the administration of 95 mL of intravenous Optiray 320. The data set was reformatted in the coronal and sagittal planes and reviewed on an independent workstation. DLP: 348 mGy-cm. FINDINGS: There is mild dependent bibasilar atelectasis. The visualized lung bases are otherwise clear. The visualized portions of the heart are unremarkable. The liver is of normal size and attenuation without focal lesions nor intrahepatic biliary ductal dilation. A normal gallbladder is identified. There is no wall thickening or discernible pericholecystic fluid. The spleen, pancreas, adrenal glands are unremarkable. Both kidneys are of normal size and attenuation without hydronephrosis or nephrolithiasis. Following the administration of IV contrast, prompt symmetric nephrograms are displayed. There is no abdominal free fluid. There is neither mesenteric nor retroperitoneal lymphadenopathy. Normal unopacified loops of small and large bowel are identified. A normal appendix is identified. There is no pelvic free fluid. The urinary bladder is unremarkable. There is neither pelvic nor inguinal lymphadenopathy. Bone windows: Neither sclerotic nor lytic bone lesions are identified. IMPRESSION: No evidence for acute abdominal or pelvic inflammatory or infectious processes. Disposition Summary Disposition Principal Diagnosis: Lower GI bleed Additional Diagnosis: Mental retardation Discharge Disposition: home or self care Discharge Instructions General Discharge Information Code Status: Full Code Patient's Diet: As tolerated Patient's Activity: As tolerated Follow-Up Instructions/Appts: Follow-up with PCP in one week after discharge Please follow-up with bench manager in 1 week after discharge Medications at Discharge Discharge Medications: Continue taking these medications: Ketoconazole (Nizoral) 2 % SHAMPOO 1 Application On the skin MONDAY, MONDAY AND MONDAY Comments: NOT GIVEN Mineral Oil/Hydrophil Petrolat (Aquaphor Ointment) 396 GM OINT...G. 1 Application On the skin As Directed as needed for SKIN Comments: NOT GIVEN Pyrithione Zinc (Selsun Blue) (Unknown Strength) SHAMPOO Unknown Dose On the skin As Directed as needed for DANDRUFF Comments: NOT GIVEN Petrolatum,White (Balmex) 51.1 % OINT...G. 1 Application On the skin As Directed as needed for PERINEAL AREA/RED, CHAFFED SKI Comments: NOT GIVEN Magnesium Hydroxide (Milk Of Magnesia) 400 MG/5 ML ORAL.SUSP 15 Milliliters ORAL Every night as needed for CONSTIPATION Comments: NOT GIVEN Acetaminophen (Acetaminophen) 325 MG TABLET 2 Tablet ORAL Q4H as needed for PAIN/FEVER>100.2 Comments: NOT GIVEN Guaifenesin/Dextromethorphan (Zyncof 20-400 MG/5 Ml Liquid) 400 MG-20 MG/5 ML LIQUID 5 Milliliters ORAL Q4H as needed for COUGH/CONGESTION Comments: NOT GIVEN Bacitracin (Bacitracin) 500 UNIT/GRAM OINT...G. 1 Application On the skin TWICE DAILY as needed for ABRASIONS/SCRAPES/MINOR VASQUEZ Instructions: apply to affected area(s) Comments: NOT GIVEN Chlorhexidine Gluconate (Periogard) (Unknown Strength) MOUTHWASH Unknown Dose ORAL TWICE DAILY Comments: NOT GIVEN Cholecalciferol (Vitamin D3) (Vitamin D) 1,000 UNIT TABLET 1 Tablet ORAL DAILY Comments: Last Taken: 06/04/17 Time: 0900 Polyethylene Glycol 3350 (Miralax) 17 GRAM POWD.PACK 1 Packet ORAL DAILY Instructions: dissolve in water Comments: NOT GIVEN Start taking the following new medications: Omeprazole (Omeprazole) 20 MG TABLET.DR 1 Tablet ORAL DAILY Qty = 30 No Refills Copies To: [facility] FELIPE,Davey
[2017-06-04] MEDS ORDERED: OMEPRAZOLE20 M3 PO (10:01)
== END 2017-06-04 11:44 ==
LOC: ERH 14:27 → ERHI 16:25 → ENRESERV 18:51 → ENTRNSPT 20:27 → 2NB 21:13 → CMPTRNSPT 21:41 → 2NB 21:53 → ENPENDDIS 06-04 11:10 → 2NB 06-04 11:44
PROVIDERS: Hospitalist; Physician Assistant Medical; Student in an Organized Health Care Education/Training Program
DX: K92.1 Melena (principal); F79 Unspecified intellectual disabilities; Q93.5 Other deletions of part of a chromosome; K59.00 Constipation, unspecified
CPT/HCPCS: 36415; 74177; 82436; 96372; 96374; 96375; 96376; G0378; J1200; J1650